=== PATIENT | female | born 1980 | race Caucasian/White ===

== ENCOUNTER 2016-03-21 15:42 | Observation (INO) | payer OTHER ==
[~2016-03-21] VITALS: Ht 160 cm; Wt 72.6 kg
--- NOTE | 2016-03-21 21:28 | DIAGNOSTIC IMAGING REPORT ---
PROCEDURE: US ABDOMEN ULTRASOUND-COMPLETE INDICATION: PAIN TECHNIQUE: Donald scale and color Doppler sonographic images of the abdomen were obtained. COMPARISON: None. FINDINGS: Status post cholecystectomy. Common duct is normal (5 mm). Pancreas is obscured by bowel gas. Liver, spleen (12.8 cm), visualized aorta, and inferior vena cava are normal. Right kidney is normal size (14.1 cm) with mild to moderate right hydronephrosis. Left kidney is of normal size (14.5 cm) with mild left hydronephrosis. Appendix cannot be visualized. IMPRESSION: 1. Status post cholecystectomy. 2. Mild to moderate right and mild left hydronephrosis which may be physiologic during , although urinary tract obstruction should still be considered. 3. Otherwise negative abdominal ultrasound.
--- NOTE | 2016-03-21 21:40 | DIAGNOSTIC IMAGING REPORT ---
PROCEDURE: US OB LIMITED INDICATION: Right flank pain. TECHNIQUE: Donald scale and color Doppler sonographic images obtained of the gravid uterus. COMPARISON: None. FINDINGS: Viable in cephalic position. Placenta is anterior and there is no evidence of previa or abruption. Normal fluid and cervix length ( 4.4 cm). Cord Doppler ratios are mildly elevated (4.3). IMPRESSION: 1. Viable in cephalic position. 2. Anterior placenta. No evidence of previa or abruption. 3. Mildly elevated cord Doppler ratios (4.3). 4. Findings discussed with Dr. Alejandre.
[2016-03-22 08:00] VITALS: BP 109/59
--- NOTE | 2016-03-22 09:36 | DIAGNOSTIC IMAGING REPORT ---
PROCEDURE: US OB LIMITED INDICATION: S/D RATIO TECHNIQUE: Donald scale and color Doppler sonographic images obtained of the gravid uterus. COMPARISON: Limited OB ultrasound 03/21/2016 FINDINGS: Single intrauterine with transverse presentation, anterior placenta without previa and heart rate 136 bpm. Normal amniotic fluid. Normal closed cervix measures 3.2 cm. Cord Doppler ratios are mildly elevated at 3.9 (previously 4.3). IMPRESSION: 1. Single live intrauterine with transverse presentation 2. Anterior placenta without previa 3. Mildly elevated cord Doppler ratios at 3.9
[2016-03-22 13:30] VITALS: BP 101/50
--- NOTE | 2016-03-22 16:20 | DIAGNOSTIC IMAGING REPORT ---
PROCEDURE: MR PELVIS W/O CONTRAST INDICATION: Right pain. Rebound. Possible appendicitis. TECHNIQUE: T1 and T2 axial and coronal images. T1 sagittal images. COMPARISON: Comparison is made to obstetrical and abdominal ultrasound is studies on 03/22/2016 and 03/21/2016. FINDINGS: Third trimester intrauterine which is now in breech position (previously cephalic). There is moderate right and mild to moderate left hydronephrosis (previously documented). Images of the right lower quadrant are grossly normal above the appendix is not definitely identified, there is no evidence of inflammatory process. There is a 5.5 cm left upper pelvic/lower abdominal ovarian cyst (previously documented). IMPRESSION: 1. Third trimester intrauterine now in breech position (previously cephalic). 2. Moderate right mild to moderate left hydronephrosis (previously documented). 3. There is a 5.5 cm left ovarian cyst (previously documented). 4. Appendix is not clearly identified, but no evidence of inflammatory process. 5. Findings discussed with Dr. Alejandre.
[2016-03-23 04:00] VITALS: BP 100/53
[2016-03-23 08:40] VITALS: BP 121/69
[2016-03-23 09:34] VITALS: BP 112/56
[2016-03-23 13:20] VITALS: BP 115/59
[2016-03-23] MEDS ORDERED: KEFLEX500 M1 PO (15:04)
--- NOTE | 2016-03-23 15:06 | Provider's Discharge Care Plan ---
Problem, Goal, Plan Problem List 1. Pyelonephritis affecting in third trimester Goals: Improve disease control Instructions: Follow up as needed
--- NOTE | 2016-03-23 15:06 | Provider's Discharge Care Plan ---
Problem, Goal, Plan Problem List 1. Pyelonephritis affecting in third trimester Goals: Improve disease control Instructions: Follow up as needed
--- NOTE | 2016-03-23 19:23 | DISCHARGE SUMMARY ---
ADMIT DATE: 03/21/2016 DISCHARGE DATE: 03/23/2016 ADMITTING DIAGNOSES: 1. Approximate 30 week gestation 2. Right lower quadrant pain 3. Fever 4. Contractions 5. Discharge DISCHARGE DIAGNOSES: 1. Approximate 30 week gestation 2. Right-sided pyelonephritis 3. Pelvic pain 4. P.o. antibiotic therapy 5. MRI evaluation of right lower quadrant BRIEF HISTORY: The patient is a well-known, somewhat complicated patient, being evaluated by [facility] as well. She has had several pregnancies, advanced maternal age. She has a history of bariatric surgery and malabsorption syndrome. HOSPITAL COURSE: She came in last Saturday complaining of abdominal pain and cramping. She was initially evaluated and thought to be dehydrated, which was performed and then apparently the elevated white count and significant evidence for pyelonephritis on the right side and/or stones by ultrasound evaluation. The patient was evaluated 4 or [address] Alejandre. The patient was placed on Rocephin 1 g a day approximately 9 p.m. After last several days she has improved steadily and desires to be discharged home. The cultures are positive and Rocephin is effective medication for treatment. Evaluation with pharmacy throughout this stay suggested discharge home with Keflex 500 mg 4 times a day, 10 days, #40, prescription given. Also during this time, blood work has shown that she has been in need of magnesium, potassium, and other elements which were provided and evaluated for normal. She also had an evaluation by the pharmacy and the nutrition branch of the hospital. Information given. DISCHARGE INSTRUCTIONS/MEDICATIONS: The patient is being discharged home with warnings and precautions. The patient was to have a followup visit in the next week. Call p.r.n.
== END 2016-03-23 16:45 | disposition home or self-care (01) ==
LOC: OBC SRH 15:42 → OB SRH 15:47 → OBC SRH 19:30 → OB SRH 19:30
PROVIDERS: ADMIT Obstetrics & Gynecology
DX: O23.03 Infections of kidney in pregnancy, third trimester (principal); O09.523 Supervision of elderly multigravida, third trimester; O99.843 Bariatric surgery status complicating pregnancy, third trimester; Z3A.30 30 weeks gestation of pregnancy
CPT/HCPCS: 29230; 29242; 29243; 29247; 29263; 81460; 90004; 90074; 90100; 90148; 90469; 91096; 92235; 92530; 92680; 92720; 92750; 95059

== ENCOUNTER 2016-04-18 14:04 | Outpatient (CLI) | payer OTHER ==
[~2016-04-18 14:04] MED LIST: KEFLEX500 M1 PO
== END 2016-04-18 14:55 | disposition home or self-care (01) ==
LOC: NST SRH 14:04 → OB SRH 14:05 → NST SRH 14:55
PROC: 4A0HXCZ Measurement of Products of Conception, Cardiac Rate, External Approach (ICD-10-PCS; principal; 2016-04-18)
DX: O99.843 Bariatric surgery status complicating pregnancy, third trimester (principal); Z3A.34 34 weeks gestation of pregnancy

== ENCOUNTER 2016-04-25 14:08 | Outpatient (CLI) | payer OTHER | END 2016-04-25 14:17 | disposition home or self-care (01) | LOC: NST SRH 14:08 → OB SRH 14:10 → NST SRH 14:17 | DX: O99.843 Bariatric surgery status complicating pregnancy, third trimester (principal); K91.2 Postsurgical malabsorption, not elsewhere classified; O09.523 Supervision of elderly multigravida, third trimester; Z3A.35 35 weeks gestation of pregnancy ==

== ENCOUNTER 2016-05-03 13:00 | Outpatient (CLI) | payer OTHER ==
[2016-05-03] MEDS ORDERED: PRENATAL1 TAB PO (16:45)
[2016-05-03] MEDS ORDERED: ALBUTEROL HFA60 DOSE IN (16:46)
[2016-05-03] MEDS ORDERED: CYANOCOBALAM1000 MCG IM (16:46)
== END 2016-05-03 14:05 | disposition home or self-care (01) ==
LOC: NST SRH 13:00 → OB SRH 13:02 → NST SRH 14:05
PROC: 4A0HXCZ Measurement of Products of Conception, Cardiac Rate, External Approach (ICD-10-PCS; principal; 2016-05-03)
DX: O99.89 Other specified diseases and conditions complicating pregnancy, childbirth and the puerperium (principal); K90.9 Intestinal malabsorption, unspecified; Z3A.36 36 weeks gestation of pregnancy

== ENCOUNTER → 2016-05-06 | Outpatient (CLI) | payer OTHER ==
[~2016-05-06] MED LIST changes: +ALBUTEROL HFA60 DOSE IN; +CYANOCOBALAM1000 MCG IM; +PRENATAL1 TAB PO; +VICODIN EQUIVAL1 TAB PO
== END ==
LOC: LAB SRH 11:39
DX: Z34.83 Encounter for supervision of other normal pregnancy, third trimester (principal)
CPT/HCPCS: 90001; 90004; 90074; 90155; 91004; 95059

== ENCOUNTER 2016-05-08 05:36 | Inpatient (IN) | payer OTHER ==
--- NOTE | 2016-05-03 19:59 | HISTORY AND PHYSICAL ---
ADMITTED: 05/08/2016 CHIEF COMPLAINT: 1. Grand mal tip with ultrasound showing lower uterine segment separation/ window in peritoneum lining with the history of bariatric surgery and malabsorption HISTORY OF PRESENT ILLNESS: [facility] consulted for this patient with 2 previous C-sections, is to perform repeat section and patient requests a bilateral tubal ligation at 37 weeks. She is now at 36 weeks 2 days and by 05/08 she will be 37 weeks. The surgery is scheduled for this time. MEDICAL/SURGICAL HISTORY: Problem list: She has history of a bladder infection. This is a grand mal tip. Previous B12 injections by primary care physician with Vitamin D supplementation and right pyelonephritis earlier in the with a short stay hospitalization and IV medication treatment. Menstrual history: Essentially normal. OB history: Normal spontaneous x3 in 1998, 2003 and 2004, section in 2006 and 2007, the current . Past surgical history: Tonsillectomy, lap band, removal of lap band, gastric bypass, cholecystectomy, endoscopy. Medical Issues: Asthma. The patient has some Child Protective Service issues and is requesting to stay as long as she can in the hospital with the baby since there will be potentially some CPS actions with regard to her potentially not keeping the baby. There are ongoing concerns from previous situation. MEDICATIONS: 1. Nothing. ALLERGIES: 1. OXYCODONE LEADS TO RASH, RESPIRATORY IRREGULARITY AND TACHYCARDIA, WHEREAS VICODIN IS NORMALLY TOLERATED. SOCIAL HISTORY: No tobacco, drinking, or drugs. FAMILY HISTORY: Mother, father, siblings alive and well. Hypertension in the mother, maternal grandmother, paternal grandfather, paternal grandmother. Diabetes, multiple, on both sides, cancer, mother of cervix, paternal grandmother and coronary artery disease. REVIEW OF SYSTEMS: Essentially alert and oriented x3. No significant problems today. Genitourinary: Purpose of surgery. Cardiovascular: No shortness of breath or chest pain. Gastrointestinal: Normal daily bowel movements. PHYSICAL EXAMINATION: VITAL SIGNS: 63 inches, 5 foot 3 inches, weight 163, blood pressure normal 120/ 76, pulse, temperature normal. HEENT: SKIN/HAIR: Normal. HEENT: Grossly intact. INTEGUMENT: Normal. BREASTS: Examination not done. LUNGS: Clear. HEART: Regular rate and rhythm. ABDOMEN: Term from previous obesity and stretch brothers. EXTREMITIES: No clubbing, cyanosis, erythema, edema of significance. PELVIC: Examination not done. RECTAL: Not done. LAB/IMAGING: Laboratories pending. IMPRESSION: 1. Lower uterine segment thinning noted on ultrasound early in by [facility]. Suggestion is delivery at 37 weeks. The patient has been having weekly ultrasounds and weekly nonstress tests. [facility] cleared the patient for delivery here at 37 weeks. PLAN: Informed consent is given to patient. Risks, benefits, complications, alternatives for repeat section and tubal ligation at 37 weeks. The possibility of blood loss, need for transfusion, infection, damage to pelvic and nonpelvic organs requiring additional surgery given to the patient. She understands, accepts the risks, range all up to including . The concept of bilateral tubal ligation is thought to be permanent, only 90% effective. Pregnancies are possible. Complications associated with that discussed. The patient understands and accepts.
[2016-05-08] VITALS (8 sets, daily range): BP systolic 110–132; BP diastolic 55–68
[~2016-05-08 05:36] MED LIST changes: -VICODIN EQUIVAL1 TAB PO
--- NOTE | 2016-05-08 10:58 | OPERATIVE REPORT ---
DATE OF SURGERY: 05/08/2016 SURGEON: Jim Bergeron MD CHARGE AIDE: Peyton Alejandre DO PREOPERATIVE DIAGNOSES: 1. A 37+ week intrauterine with nonexistent lower uterine muscle layer by earlier ultrasound. [facility] suggested delivery at 37 weeks due to possible rupture, previous section x2, multiparity, desiring voluntary sterilization. Previous history of multiple surgeries POSTOPERATIVE DIAGNOSES: 1. A 37+ week intrauterine with nonexistent lower uterine muscle layer by earlier ultrasound. [facility] suggested delivery at 37 weeks due to possible rupture, previous section x2, multiparity, desiring voluntary sterilization. Previous history of multiple surgeries PROCEDURE PERFORMED: 1. Repeat section, Pfannenstiel type 2. Bilateral tubal ligation with Filshie clips 3. Scar revision. ANESTHESIA: Spinal; Anesthesiologist: Karli MUNROE. COMPLICATIONS: None. CONDITION: Good. ESTIMATED BLOOD LOSS: Less than 300 mL FLUIDS: 300. IMPLANTS/GRAFTS: No blood, no grafts, no implants other than 2 Filshie clips. SURGICAL FINDINGS: Normal anatomy consistent with previous section x2. The lower uterine segment was less than 1 mm thick, minimal dissection after the bladder flap was developed before clear fluid was noted with entry into the uterine cavity through the amniotic chorion. SURGICAL TECHNIQUE: The patient was prepped and draped in the usual fashion. Two grams of Ancef given. The time-out was observed with a history of significant weight loss , gastric plication. The pannus had to be evaluated for proper entry. A Pfannenstiel incision approximately 12 cm in length developed 3-4 cm superior and inferiorly through the previous scar, was delivered as a scar revision. This dissection was carried down into the primary anatomic position by elevating the pannus to the fascia, which was dissected and then superiorly. There was a thin layer of rectus which was easily . The parietal peritoneum was easily entered and stretch was performed. The bladder blade was placed. Bovie was used to cauterize the bladder flap and then dissect the lower uterine segment which was less than 1 mm thick. Bandage scissors were used to carry the incision laterally and superiorly. Infant was delivered with difficulty in the transverse position as expected for 37 weeks and had some vernix but was an atraumatic delivery. Pediatricians were in attendance. There was suctioning cord x2 to the baby and then cord clamp was performed. The baby was handed to pediatrics after suctioning was performed. Apgars were good. The baby was active at this point. The uterus was massaged internally, in its normal anatomic position and Pitocin was started IV. Placenta was delivered intact. The uterus had 3 ring clamps placed on it, the first suture of 0 poly was used in a locking fashion from angle to angle using the same suture for return imbricating suture with good hemostasis. The ovaries were inspected bilaterally along with the tubes and the ampullary area 3-4 cm from the fundus of the uterus, the Filshie clips were securely placed, doubly checked for secure placement after irrigation , removal of amniotic fluid and some blood loss. A small loop was used to place the parietal peritoneum in the rectus to prevent diastasis recti, then the fascia was reapproximated with a running suture of 0-poly from angle to angle with good reapproximation of the fascia to hopefully decrease the amount of pannus formation. The first suture of 2-0 poly was then used to reapproximate the gaping area of subcutaneous tissue 5 cm deep. This was reapproximated to prevent seroma. Good hemostasis. The skin was reapproximated with tawanna. Sponge, needle, tape and instrument count was correct x2. The patient tolerated the procedure well and went to the recovery room in good condition.
[2016-05-09 00:38] VITALS: BP 107/52
[2016-05-09 05:01] VITALS: BP 114/62
[2016-05-09 09:30] VITALS: BP 127/59
[2016-05-09 16:15] VITALS: BP 103/61
[2016-05-10 00:59] VITALS: BP 119/70
[2016-05-10 04:50] VITALS: BP 105/57
[2016-05-10] MEDS ORDERED: VICODIN EQUIVAL1 TAB PO (11:38)
--- NOTE | 2016-05-10 11:40 | Provider's Discharge Care Plan ---
Problem, Goal, Plan Problem List 1. Post-operative pain Goals: Improve disease control Instructions: Follow up as needed
--- NOTE | 2016-05-10 11:40 | Provider's Discharge Care Plan ---
Problem, Goal, Plan Problem List 1. Post-operative pain Goals: Improve disease control Instructions: Follow up as needed
--- NOTE | 2016-05-10 13:14 | DISCHARGE SUMMARY ---
ADMIT DATE: 05/08/2016 DISCHARGE DATE: 05/10/2016 ADMITTING DIAGNOSIS: 1. A 37 week gestation. Thin lower uterine segment, suggested section at 37 weeks by [facility] consultation 2. Multiparity desiring voluntary sterilization DISCHARGE DIAGNOSIS: 1. A 37 week gestation. Thin lower uterine segment, suggested section at 37 weeks by [facility] consultation, delivered at 37+ weeks 2. Multiparity desiring voluntary sterilization PROCEDURE: Repeat low segment transverse uterine section, scar revision , bilateral tubal ligation, Filshie clips. HOSPITAL COURSE: The patient came in for elective section at 37+ weeks. Had a normal recovery. She had some issues with Child Protective Services and the was to be removed on the patient's discharge. Now it is postoperative day 2, the patient is ready for discharge and CPS is going to take the baby. DISCHARGE MEDICATIONS/INSTRUCTIONS: The patient was given warnings and precautions. She has a normal physical exam, normal resumption of GI and function as well as a followup appointment in a week. She is being discharged home with Vicodin 5/325, #20, 1 p.o. q.6 hours p.r.n. She states she has intolerance or AN ALLERGY TO PERCOCET, leading to nausea and vomiting. The patient has appointments as noted in 1 in 6 weeks and will follow up as needed. Cautions and warnings given.
== END 2016-05-10 14:45 | disposition home or self-care (01) | DRG 766 ==
LOC: OB SRH 05:36 → U SRH 08:30 → OB SRH 05-10 14:45
PROVIDERS: ADMIT Obstetrics & Gynecology
PROC: 10D00Z1 Extraction of Products of Conception, Low, Open Approach (ICD-10-PCS; principal; 2016-05-08 08:30)
PROC: 0UL70CZ Occlusion of Bilateral Fallopian Tubes with Extraluminal Device, Open Approach (ICD-10-PCS; principal; 2016-05-08 08:30)
DX: O34.211 Maternal care for low transverse scar from previous cesarean delivery (principal); Z37.0 Single live birth; N85.8 Other specified noninflammatory disorders of uterus; O09.43 Supervision of pregnancy with grand multiparity, third trimester; Z30.2 Encounter for sterilization; Z3A.37 37 weeks gestation of pregnancy
CPT/HCPCS: 40010; 50002; 60001; 82885; 83411; 83426; 83526; 84038; 84043; 90074; 91162; 91163

== ENCOUNTER 2016-08-21 06:24 | Day surgery (SDC) | payer OTHER ==
--- NOTE | 2016-08-10 18:55 | HISTORY AND PHYSICAL ---
ADMITTED: 08/21/2016 CHIEF COMPLAINT: Dysmenorrhea, menometrorrhagia. HISTORY OF PRESENT ILLNESS: The patient has a long history of multiple surgeries , gastric sleeve, weight issues and heavy uterine menstrual periods and wants a supracervical hysterectomy. MEDICAL/SURGICAL HISTORY: Menstrual history: Onset age 14. Interval monthly, 10 days, heavy in character, dysmenorrhea. Contraception/ history: Not significant. Deliveries are 6, 3 vaginal in 1998, 2003 and 2004, 3 sections in 2006, 2007 and 2016, the largest is 9 pounds 5 ounces. Past history of gastric bypass in 2014. Cholecystectomy in 1998, lap band 2011, lap band removed 2012, tonsillectomy in 2002, cholecystectomy in 1998, endoscopy in 2013. Medical history of lumbago, carpal tunnel, asthma, alopecia, bipolar, intertrigo, insomnia, migraine, malabsorption syndrome, vitamin D deficiency, panic disorder. MEDICATIONS: 1. Albuterol p.r.n. 2. Triamcinolone cream p.r.n. 3. B12 injections monthly. ALLERGIES: 1. OXYCODONE. SOCIAL HISTORY: FAMILY HISTORY: Mother, father, siblings alive and well. REVIEW OF SYSTEMS: The patient is alert and oriented x3. Genitourinary: Purpose for surgery. Cardiovascular: No shortness of breath or chest pain. Gastrointestinal: Normal daily bowel movements. PHYSICAL EXAMINATION: VITAL SIGNS: She is 5 feet 3 inches, 146, 108/72, blood pressure, pulse, and temperature normal. SKIN/HAIR/INTEGUMENT: Normal. HEENT: Grossly intact. NECK: Thyroid not palpated. BREASTS: Exam not done. LUNGS: Clear. HEART: Regular rate and rhythm. ABDOMEN: Benign, well-healed from previous recent section. EXTREMITIES: No clubbing, cyanosis, erythema or edema. PELVIC/RECTAL: Deferred at this time. See previous exam. LAB/IMAGING: Pending. IMPRESSION: 1. Abnormal uterine bleeding with a long history of abnormal bleeding and pain. PLAN: Supracervical hysterectomy with morcellation including bilateral salpingectomy. Informed consent given to the patient. Risks, benefits, complications, alternatives similar to list given to the patient several months ago with section. The patient understands and accepts.
[~2016-08-21] VITALS: Ht 160 cm; Wt 64.7 kg
[~2016-08-21 06:24] MED LIST changes: +VICODIN EQUIVAL1 TAB PO
[2016-08-21] MEDS ORDERED: VICODIN EQUIVAL1 TAB PO (10:23)
--- NOTE | 2016-08-21 10:25 | Provider's Discharge Care Plan ---
Problem, Goal, Plan Problem List 1. Post-operative pain Goals: Improve disease control Instructions: Follow up as needed, Follow up as directed
--- NOTE | 2016-08-21 10:25 | Provider's Discharge Care Plan ---
Problem, Goal, Plan Problem List 1. Post-operative pain Goals: Improve disease control Instructions: Follow up as needed, Follow up as directed
--- NOTE | 2016-08-21 12:54 | OPERATIVE REPORT ---
DATE OF SURGERY: 08/21/2016 SURGEON: Jim Bergeron MD SANDER WOODEN PENCILS: Danny Gage III, MD PREOPERATIVE DIAGNOSES: 1. Dysmenorrhea 2. Menorrhagia 3. Abnormal uterine bleeding 4. Pelvic pain in female POSTOPERATIVE DIAGNOSES: 1. Dysmenorrhea 2. Menorrhagia 3. Abnormal uterine bleeding 4. Pelvic pain in female PROCEDURE PERFORMED: 1. Four-puncture laparoscopic surgery, bilateral salpingectomy and morcellation of specimen ANESTHESIA: General endotracheal. Wanda, SULKY DRIVER. COMPLICATIONS: Redundant tissue from previous massive surgery loss. CONDITION: Good. ESTIMATED BLOOD LOSS: Less than 50 mL. FLUIDS: 900. No blood. DRAINS: 100. IMPLANTS/GRAFTS: None. PATHOLOGY SPECIMEN: Supracervical hysterectomy and bilateral salpingectomy by morcellation, to pathology. SURGICAL FINDINGS: Normal, minimal adhesions, considering the number of previous surgeries. SURGICAL TECHNIQUE: The patient was prepped and draped in the usual procedure. Time-out was performed. Ancef had been given, 2 grams. The patient had multiple scars from previous surgeries. There was some difficulty attempting to place the Veress needle through the redundant tissue from previous gastric plications and resultant weight loss. Dr. Gage then thought it would be in order to right upper region where there was no previous incision site, in the right upper quadrant. He made a 2 cm incision and also went through 5-6 cm of redundant subcutaneous tissue without actually perforating the fascia, to gain exposure. At this point, it was decided to just do a small cut down the midline where we started. A 2 cm incision was made under sharp dissection in the midline, 2 cm below the umbilicus, with good placement. With good exposure, the 10 mm scope was placed, and then the suture was used to reapproximate the skin for being able to achieve the pneumoperitoneum. The uterus and ovaries appeared normal. There was enlarged left ovary. We then began the Thunderbeat dissection of the salpinx from the ovary bilaterally, down to the attachment of the round ligament. Then we dissected across the transverse cervical ligaments, down to the uterosacral ligaments. At this point, we dissected the bladder across the top, and then we used the Thunderbeat to dissect and cut the supracervical region, and the specimen was freed. At this point, since there was a 2 cm incision site at the subumbilical site, we placed the morcellating instrument through that orifice instead of enlarging the left lower quadrant in the usual fashion. A 5 mm camera was placed on the right side. The coding director was performed on the left. specimen was removed in the usual fashion through the subumbilical site. Specimen was removed. One liter of saline was repeatedly irrigated in the abdomen to remove possible small piece of the uterus which may cause seeding in the future. Good hemostasis on the stump of the supracervical site incision and good hemostasis in general. Irrigation had been performed and completed. The two 5 mm sites were removed. The 11 mm site was removed. The CO2 was allowed to escape. Two of the incision sites had several tawanna placed. The other 2 sites had Band-Aids placed. Sponge, needle, tape and instrument counts were correct x2. The patient tolerated the procedure well and went to the recovery room in good condition. We did not take any pictures during surgery; there was nothing of interest during the surgery to visualize historically.
--- NOTE | 2016-08-21 12:54 | OPERATIVE REPORT ---
DATE OF SURGERY: 08/21/2016 SURGEON: Jim Bergeron MD MEMS PROCESS ENGINEER: Danny Gage III, MD PREOPERATIVE DIAGNOSES: 1. Dysmenorrhea 2. Menorrhagia 3. Abnormal uterine bleeding 4. Pelvic pain in female POSTOPERATIVE DIAGNOSES: 1. Dysmenorrhea 2. Menorrhagia 3. Abnormal uterine bleeding 4. Pelvic pain in female PROCEDURE PERFORMED: 1. Four-puncture laparoscopic surgery, bilateral salpingectomy and morcellation of specimen ANESTHESIA: General endotracheal. Wanda, RESOURCE FORESTER. COMPLICATIONS: Redundant tissue from previous massive surgery loss. CONDITION: Good. ESTIMATED BLOOD LOSS: Less than 50 mL. FLUIDS: 900. No blood. DRAINS: 100. IMPLANTS/GRAFTS: None. PATHOLOGY SPECIMEN: Supracervical hysterectomy and bilateral salpingectomy by morcellation, to pathology. SURGICAL FINDINGS: Normal, minimal adhesions, considering the number of previous surgeries. SURGICAL TECHNIQUE: The patient was prepped and draped in the usual procedure. Time-out was performed. Ancef had been given, 2 grams. The patient had multiple scars from previous surgeries. There was some difficulty attempting to place the Veress needle through the redundant tissue from previous gastric plications and resultant weight loss. Dr. Gage then thought it would be in order to right upper region where there was no previous incision site, in the right upper quadrant. He made a 2 cm incision and also went through 5-6 cm of redundant subcutaneous tissue without actually perforating the fascia, to gain exposure. At this point, it was decided to just do a small cut down the midline where we started. A 2 cm incision was made under sharp dissection in the midline, 2 cm below the umbilicus, with good placement. With good exposure, the 10 mm scope was placed, and then the suture was used to reapproximate the skin for being able to achieve the pneumoperitoneum. The uterus and ovaries appeared normal. There was enlarged left ovary. We then began the Thunderbeat dissection of the salpinx from the ovary bilaterally, down to the attachment of the round ligament. Then we dissected across the transverse cervical ligaments, down to the uterosacral ligaments. At this point, we dissected the bladder across the top, and then we used the Thunderbeat to dissect and cut the supracervical region, and the specimen was freed. At this point, since there was a 2 cm incision site at the subumbilical site, we placed the morcellating instrument through that orifice instead of enlarging the left lower quadrant in the usual fashion. A 5 mm camera was placed on the right side. The legal administrator was performed on the left. specimen was removed in the usual fashion through the subumbilical site. Specimen was removed. One liter of saline was repeatedly irrigated in the abdomen to remove possible small piece of the uterus which may cause seeding in the future. Good hemostasis on the stump of the supracervical site incision and good hemostasis in general. Irrigation had been performed and completed. The two 5 mm sites were removed. The 11 mm site was removed. The CO2 was allowed to escape. Two of the incision sites had several tawanna placed. The other 2 sites had Band-Aids placed. Sponge, needle, tape and instrument counts were correct x2. The patient tolerated the procedure well and went to the recovery room in good condition. We did not take any pictures during surgery; there was nothing of interest during the surgery to visualize historically.
[2016-08-21 15:50] VITALS: BP 118/71
== END 2016-08-21 22:10 | disposition home or self-care (01) ==
LOC: OR SRH 06:24 → SCU SRH 06:25 → OR SRH 07:30 → OB SRH 17:39 → OR SRH 22:10
PROVIDERS: Obstetrics & Gynecology
PROC: 0UT94ZZ Resection of Uterus, Percutaneous Endoscopic Approach (ICD-10-PCS; principal; 2016-08-21 07:30)
PROC: 0UT74ZZ Resection of Bilateral Fallopian Tubes, Percutaneous Endoscopic Approach (ICD-10-PCS; principal; 2016-08-21 07:30)
DX: N92.0 Excessive and frequent menstruation with regular cycle (principal); N80.0 Endometriosis of uterus; N94.6 Dysmenorrhea, unspecified; R10.2 Pelvic and perineal pain; J45.909 Unspecified asthma, uncomplicated

== ENCOUNTER 2016-08-24 04:19 | Observation (INO) | payer OTHER ==
[2016-08-24] VITALS (12 sets, daily range): BP systolic 120–160; BP diastolic 68–95
[~2016-08-24] VITALS: Ht 160 cm; Wt 68.2 kg
--- NOTE | 2016-08-24 05:38 | ED ORDER SUMMARY ---
..... Patient: JUAN CARLOS NAVA V OrderSheet [facility] VisitID: [id number] [place] [address] 36y, F Registration Date/Time: 08/24/2016 ORDER SHEET Weight: 64.4 kg (stated) Allergies: Oxycodone GENERAL ORDERS: UA-Culture if indicated Urgent (04:08/24/2016 PHutchinson DO) (Ack 4:39 OSnell) (4:49 CBradburn R.N.) Amylase Urgent (04:08/24/2016 PHutchinson DO) (Ack 4:39 OSnell) (4:55 CBradburn R.N.) Lipase Urgent (04:08/24/2016 PHutchinson DO) (Ack 4:39 OSnell) (4:55 CBradburn R.N.) Urine Drug Screen Urgent (04:08/24/2016 PHutchinson DO) (Ack 4:39 OSnell) (4:49 CBradburn R.N.) PT with INR Urgent (04:08/24/2016 PHutchinson DO) (Ack 4:39 OSnell) (4:55 CBradburn R.N.) Cardiac Panel Stat (04:08/24/2016 PHchinson DO) (Ack 4:39 OSnell) (4:55 CBradburn R.N.) BNP Urgent (04:08/24/2016 PHutchinson DO) (Ack 4:40 OSnell) (4:55 CBradburn R.N.) NPO (04:08/24/2016 PHutchinson DO) (Ack 4:39 OSnell) (4:46 CBradburn R.N.) MEDICATION ORDERS: IV FLUIDS: IV NS : initial bolus 1000 mL (1000 mL/hr), then 500 mL/hr for X2 (NOW) (04:08/24/2016 PHutchinson DO) (Ack 4:46 CBradburn R.N.) (4:56 CBradburn R.N.) Zofran IV 4 mg (NOW) (04:08/24/2016 PHutchinson DO) (Ack 4:46 CBradburn R.N.) (4:56 CBradburn R.N.) Reglan IV 10 mg (NOW) (05:40 08/24/2016 Jameel ORLANDO) (Ack 5:57 CBradburn R.N.) (6:08 CBradburn R.N.) ORDER SHEET NOTES: [Electronically signed by Glen Smith DO (05:50 08/24/2016)] [Electronically signed by Cate Farley R.N. (06:26 08/24/2016)] [Electronically locked/signed by Cate Farley R.N. (06:26 08/24/2016)]
--- NOTE | 2016-08-24 05:38 | ED ORDER SUMMARY ---
..... Patient: JUAN CARLOS NAVA V OrderSheet [facility] VisitID: [id number] [place] [address] 36y, F Registration Date/Time: 08/24/2016 ORDER SHEET Weight: 64.4 kg (stated) Allergies: Oxycodone GENERAL ORDERS: UA-Culture if indicated Urgent (04:08/24/2016 PHutchinson DO) (Ack 4:39 OSnell) (4:49 CBradburn R.N.) Amylase Urgent (04:08/24/2016 PHutchinson DO) (Ack 4:39 OSnell) (4:55 CBradburn R.N.) Lipase Urgent (04:08/24/2016 PHutchinson DO) (Ack 4:39 OSnell) (4:55 CBradburn R.N.) Urine Drug Screen Urgent (04:08/24/2016 PHutchinson DO) (Ack 4:39 OSnell) (4:49 CBradburn R.N.) PT with INR Urgent (04:08/24/2016 PHutchinson DO) (Ack 4:39 OSnell) (4:55 CBradburn R.N.) Cardiac Panel Stat (04:08/24/2016 PHchinson DO) (Ack 4:39 OSnell) (4:55 CBradburn R.N.) BNP Urgent (04:08/24/2016 PHutchinson DO) (Ack 4:40 OSnell) (4:55 CBradburn R.N.) NPO (04:08/24/2016 PHutchinson DO) (Ack 4:39 OSnell) (4:46 CBradburn R.N.) MEDICATION ORDERS: IV FLUIDS: IV NS : initial bolus 1000 mL (1000 mL/hr), then 500 mL/hr for X2 (NOW) (04:08/24/2016 PHutchinson DO) (Ack 4:46 CBradburn R.N.) (4:56 CBradburn R.N.) Zofran IV 4 mg (NOW) (04:08/24/2016 PHutchinson DO) (Ack 4:46 CBradburn R.N.) (4:56 CBradburn R.N.) Reglan IV 10 mg (NOW) (05:40 08/24/2016 Jameel ORLANDO) (Ack 5:57 CBradburn R.N.) (6:08 CBradburn R.N.) ORDER SHEET NOTES: [Electronically signed by Glen Smith DO (05:50 08/24/2016)] [Electronically signed by Cate Farley R.N. (06:26 08/24/2016)] [Electronically locked/signed by Cate Farley R.N. (06:26 08/24/2016)]
--- NOTE | 2016-08-24 05:38 | ED CLINICAL REPORT ---
Clinical Report - Physicians/Mid Levels [facility] [address] [place] [place] [address] 08/24/2016 4:18 Patient: JUAN CARLOS NAVA V Time Seen: 04:24. Arrived- By private vehicle. Historian- patient. HISTORY OF PRESENT ILLNESS Chief Complaint: VOMITING. This started last night about 8 hours ago and is still present. It was gradual in onset and has been waxing/waning. No recent travel. She has had nausea (since surgery, but no vomiting until last night). She has had moderate vomiting. The vomiting has occurred numerous times. No blood-tinged emesis or frankly bloody emesis. No diarrhea, black stools, bloody stools or known contact with a sick individual. She has had moderate abdominal pain. The pain is described as generalized. Has not recently been camping. The illness is described as moderate. Similar symptoms previously: Recent medical care: The patient was seen recently by a health care provider. ( Had hysterectomy at [facility] on - Dr Bergeron; She has been taking opiate pain meds since surgery). REVIEW OF SYSTEMS The patient has had a hysterectomy. No fever, difficulty with urination, headache, sore throat or cough. No chest pain, difficulty breathing, excessive urination, skin rash or jaundice. No fainting episodes or blurred vision. The patient has had dark urine and dizziness. Denies current . All systems otherwise negative, except as recorded above. 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 URI. Asthma. Hypokalemia. Syncope. UTI - Urinary Tract Infection. Cystitis. Chest Wall Pain. Depression. Bipolar Disorder. SURGERIES: Hysterectomy with unilat salpingectomy (3 days ago)Cholecystectomy. . Gastric bypass. Gastric Resection. Lap band. Tonsillectomy. Tympanostomy Tubes ADDITIONAL HISTORY FROM OLD RECORDS: MEDICAL/SURGICAL HISTORY: Menstrual history: Onset age 14. Interval monthly, 10 days, heavy in character, dysmenorrhea. Contraception/ history: Not significant. Deliveries are 6, 3 vaginal in 1998, 2003 and 2004, 3 sections in 2006, 2007 and 2016, the largest is 9 pounds 5 ounces. Past history of gastric bypass in 2014. Cholecystectomy in 1998, lap band 2011, lap band removed 2012, tonsillectomy in 2002, cholecystectomy in 1998, endoscopy in 2013. Medical history of lumbago, carpal tunnel, asthma, alopecia, bipolar, intertrigo, insomnia, migraine, malabsorption syndrome, vitamin D deficiency, panic disorder. SOCIAL HISTORY Never smoker. No alcohol use or drug use. Residence: [place] Is a local resident. FAMILY HISTORY Mother, father, siblings alive and well. ADDITIONAL NOTES The nursing notes have been reviewed. PHYSICAL EXAM Vital Signs: 08/24/2016 04:26 BP: 140/67. HR: 89. RR: 18. O2 saturation: 97%. Temp: 98.7 F. Pain level now: 8/10. Appearance: Alert. Oriented X3. Patient in moderate distress. Eyes: Eyes normal inspection. No pale conjunctivae or scleral icterus. ENT: Nose normal. No pharyngeal erythema or tonsillar exudate. Neck: Normal inspection. Neck supple. CVS: Normal heart rate and rhythm. Heart sounds normal. Pulses normal. Respiratory: No respiratory distress. Breath sounds normal. Abdomen: Soft. Moderate tenderness diffusely and in the upper and lower abdomen. No mass. No rebound tenderness or guarding. Back: Normal inspection. Skin: Skin warm and dry. Normal skin color. Normal skin turgor. Extremities: Extremities exhibit normal ROM. No calf tenderness. No lower extremity edema. Neuro: Oriented X 3. No motor deficit. LABS, X-RAYS, AND EKG Laboratory Tests: UA-Culture if indicated: (ANA: 08/24/2016 04:44) ( MsgRcvd 08/24/2016 05:19) Final results Test Result Flag Units (Reference) URINE COLOR YELLOW URINE APPEARANCE CLEAR URINE GLUCOSE NEGATIVE (NEGATIVE) URINE BILIRUBIN NEGATIVE (NEGATIVE) URINE KETONE 1+ (NEGATIVE) URINE SPECIFIC GRAVITY >= 1.030 (1.010-1.030) URINE PH 6.0 (5.0-8.0) URINE PROTEIN TRACE (NEGATIVE) URINE UROBILINOGEN 0.2 EU/dL (0.2-1.0) URINE NITRITE NEGATIVE (NEGATIVE) URINE BLOOD 1+ (NEGATIVE) URINE LEUK ESTERASE NEGATIVE (NEGATIVE) URINE RBC 1-3 rbc/hpf (0-1) URINE WBC 0-1 wbc/hpf (0-1) URINE EPITHELIAL CELLS 1-3 EPI/hpf (0-5) URINE BACTERIA NONE SEEN (NONE SEEN) URINE COMMENT CULT NOT INDICATED URINE CULTURES ARE SET-UP BASED ON THE FOLLOWING CRITERIA:POSITIVE NITRITEPOSITIVE LEUKOCYTE ESTERASEGREATER THAN 10 WHITE BLOOD CELLSMODERATE (2+) OR GREATER BACTERIA CBC w Diff: (ANA: 08/24/2016 04:44) ( [facility] 08/24/2016 05:06) Final results Test Result Flag Units (Reference) WHITE BLOOD COUNT 12.8 # H K/uL (4.5-11.5) RED BLOOD COUNT 5.07 M/uL (4.00-5.20) HEMOGLOBIN 13.3 gm/dL (12.0-16.0) HEMATOCRIT 41.4 % (36.0-46.0) MEAN CELL VOLUME 82 fL (80-100) MEAN CORPUSCULAR HGB 26 pg (26-34) MEAN CORPUSCULAR HGB CONC 32 g/dL (31-37) RED CELL DISTRIBUTION WIDTH 15.6 H % (11.6-14.8) PLATELET COUNT 277 K/uL (150-400) NEUTROPHIL % 84.2 H % (50-75) LYMPH % 9.3 L % (25-40) MONO % 4.8 % (3-14) EOSINOPHIL % 1.7 % (0-4) BASOPHIL % 0 % (0-2) PT with INR: (ANA: 08/24/2016 04:44) ( [facility] 08/24/2016 05:13) Final results Test Result Flag Units (Reference) INR 0.9 (0.8-1.2) Low Intensity Therapy: INR 1.5-2.0 PT range 18.5-23.1Mod.Intensity Therapy: INR 2.0-3.0 PT range 23.1-31.5High Intensity Therapy: INR 2.5-3.5 PT range 27.4-35.5High Intensity Therapy 2: INR 3.0-4.0 PT range 31.5-39.3 Urine Drug Screen: (ANA: 08/24/2016 04:44) ( [facility] 08/24/2016 05:21) Final results Test Result Flag Units (Reference) AMPHETAMINE/METHAMPHETAMINE NEGATIVE (NEGATIVE) BARBITURATE NEGATIVE (NEGATIVE) BENZODIAZEPINE NEGATIVE (NEGATIVE) CANNABINOID NEGATIVE (NEGATIVE) COCAINE NEGATIVE (NEGATIVE) ECSTASY NEGATIVE (NEGATIVE) METHADONE NEGATIVE (NEGATIVE) OPIATE POSITIVE H (NEGATIVE) The urine drug screen is a qualitative screening test fordrug overdose and abuse. All screen results should beconsidered as presumptive.Drugs screened for are as follows:BenzodiazepinesCocaineAmphetamines/MetamphetaminesTHC (Tetrahydrocannabinol)OpiatesBarbituratesEcstasyMethadonePositive results are unconfirmed. For confirmation, notifythe lab for the specimen to be sent to the reference lab.All confirmations must be performed by a differentmethodology.The ingestion of natural herbal and plant productscontaining Ephedra/Ephedra metabolites can produce in urineone or more substances capable of cross reacting withamphetamine/methamphetamine immunoassays. These testsprovide a preliminary result only. A more specificalternative chemical method must be used to obtain aconfirmed analytical result. BNP: (ANA: 08/24/2016 04:44) ( [facility] 08/24/2016 05:25) Final results Test Result Flag Units (Reference) B-TYPE NATRIURETIC PEPTIDE 10.9 pg/ml (5-100) Lipase: (ANA: 08/24/2016 04:44) ( [facility] 08/24/2016 05:19) Final results Test Result Flag Units (Reference) LIPASE 92 U/L (73-393) AMYLASE 45 U/L (25-115) CHEM 13 PANEL: (ANA: 08/24/2016 04:44) ( [facility] 08/24/2016 05:23) Final results Test Result Flag Units (Reference) GLUCOSE 142 H mg/dL (70-110) BUN 13 mg/dL (7-18) CREATININE 0.6 mg/dL (0.6-1.3) Estimated GFR >60 mL/min Estimated GFR- >60 mL/min Note: Persistent reduction over 3 months in eGFR<60 mL/min/1.73 m2 defines CKD. Patients with eGFR values>=60 mL/min/1.73 m2 may also have CKD if evidence ofpersistent proteinuria. Additional information may be foundat www.kidney.org. SODIUM 146 H mmol/L (136-145) POTASSIUM 3.8 mmol/L (3.5-5.1) CHLORIDE 106 mmol/L (98-107) CARBON DIOXIDE 29 mmol/L (21-32) CALCIUM 9.6 mg/dL (8.5-10.1) TOTAL PROTEIN 7.8 g/dL (6.4-8.2) ALBUMIN 3.7 g/dL (3.3-5.0) BILIRUBIN, TOTAL 1.5 H mg/dL (0.0-1.0) ALKALINE PHOSPHATASE 82 U/L (46-116) AST (SGOT) 17 U/L (15-37) ALT (SGPT) 27 U/L (12-78) MAGNESIUM 2.1 mg/dL (1.8-2.4) CPK 45 U/L (24-260) TROPONIN I <0.05 ng/mL (0.00-1.5) TROPONIN REFERENCE RANGE:<0.1 NEGATIVE0.1-1.5 INDETERMINANT>1.5 POSITIVE . Pulse Oximetry: 08/24/2016 04:26 O2 saturation: 97%. (FIO2 - room air). Interpretation: normal. PROGRESS AND PROCEDURES Course of Care: Normal Saline 1 liter IVPB given. Zofran 4 mg IVP given. 05:27 08/24/16. Patient is stable. Physical exam findings are improved. Symptoms better. :08/24/16. Still some nausea. Dr Bergeron will see pt in house. I will continue IV fluids and antiemetics. She will have a repeat exam and consideration for additional imaging if symptoms persist. Discussed case with on-call health care provider, (Rubio). Reviewed test results. Agreed upon treatment plan. Health care provider will see patient in hospital. Patient/family counseled. Old ED and inpatient records reviewed. Transition orders written. Disposition: Observation in Acute Care. Condition: stable and guarded and improved. CLINICAL IMPRESSION Intractable vomiting with nausea, dehydration and volume depletion. Generalized abdominal pain of undetermined cause. (3 days post hysterectomy). Moderate dehydration. Abnormal liver function test: total bilirubin. Mild leukocytosis. No lymphocytosis. (Electronically signed by Glen Smith DO 08/24/2016 5:50)
--- NOTE | 2016-08-24 05:38 | ED CLINICAL REPORT ---
Clinical Report - Physicians/Mid Levels [facility] [address] [place] [address] 08/24/2016 4:18 Patient: JUAN CARLOS NAVA V Time Seen: 04:24. Arrived- By private vehicle. Historian- patient. HISTORY OF PRESENT ILLNESS Chief Complaint: VOMITING. This started last night about 8 hours ago and is still present. It was gradual in onset and has been waxing/waning. No recent travel. She has had nausea (since surgery, but no vomiting until last night). She has had moderate vomiting. The vomiting has occurred numerous times. No blood-tinged emesis or frankly bloody emesis. No diarrhea, black stools, bloody stools or known contact with a sick individual. She has had moderate abdominal pain. The pain is described as generalized. Has not recently been camping. The illness is described as moderate. Similar symptoms previously: Recent medical care: The patient was seen recently by a health care provider. ( Had hysterectomy at [facility] on - Dr Bergeron; She has been taking opiate pain meds since surgery). REVIEW OF SYSTEMS The patient has had a hysterectomy. No fever, difficulty with urination, headache, sore throat or cough. No chest pain, difficulty breathing, excessive urination, skin rash or jaundice. No fainting episodes or blurred vision. The patient has had dark urine and dizziness. Denies current . All systems otherwise negative, except as recorded above. 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 URI. Asthma. Hypokalemia. Syncope. UTI - Urinary Tract Infection. Cystitis. Chest Wall Pain. Depression. Bipolar Disorder. SURGERIES: Hysterectomy with unilat salpingectomy (3 days ago)Cholecystectomy. . Gastric bypass. Gastric Resection. Lap band. Tonsillectomy. Tympanostomy Tubes ADDITIONAL HISTORY FROM OLD RECORDS: MEDICAL/SURGICAL HISTORY: Menstrual history: Onset age 14. Interval monthly, 10 days, heavy in character, dysmenorrhea. Contraception/ history: Not significant. Deliveries are 6, 3 vaginal in 1998, 2003 and 2004, 3 sections in 2006, 2007 and 2016, the largest is 9 pounds 5 ounces. Past history of gastric bypass in 2014. Cholecystectomy in 1998, lap band 2011, lap band removed 2012, tonsillectomy in 2002, cholecystectomy in 1998, endoscopy in 2013. Medical history of lumbago, carpal tunnel, asthma, alopecia, bipolar, intertrigo, insomnia, migraine, malabsorption syndrome, vitamin D deficiency, panic disorder. SOCIAL HISTORY Never smoker. No alcohol use or drug use. Residence: [place] Is a local resident. FAMILY HISTORY Mother, father, siblings alive and well. ADDITIONAL NOTES The nursing notes have been reviewed. PHYSICAL EXAM Vital Signs: 08/24/2016 04:26 BP: 140/67. HR: 89. RR: 18. O2 saturation: 97%. Temp: 98.7 F. Pain level now: 8/10. Appearance: Alert. Oriented X3. Patient in moderate distress. Eyes: Eyes normal inspection. No pale conjunctivae or scleral icterus. ENT: Nose normal. No pharyngeal erythema or tonsillar exudate. Neck: Normal inspection. Neck supple. CVS: Normal heart rate and rhythm. Heart sounds normal. Pulses normal. Respiratory: No respiratory distress. Breath sounds normal. Abdomen: Soft. Moderate tenderness diffusely and in the upper and lower abdomen. No mass. No rebound tenderness or guarding. Back: Normal inspection. Skin: Skin warm and dry. Normal skin color. Normal skin turgor. Extremities: Extremities exhibit normal ROM. No calf tenderness. No lower extremity edema. Neuro: Oriented X 3. No motor deficit. LABS, X-RAYS, AND EKG Laboratory Tests: UA-Culture if indicated: (ANA: 08/24/2016 04:44) ( MsgRcvd 08/24/2016 05:19) Final results Test Result Flag Units (Reference) URINE COLOR YELLOW URINE APPEARANCE CLEAR URINE GLUCOSE NEGATIVE (NEGATIVE) URINE BILIRUBIN NEGATIVE (NEGATIVE) URINE KETONE 1+ (NEGATIVE) URINE SPECIFIC GRAVITY >= 1.030 (1.010-1.030) URINE PH 6.0 (5.0-8.0) URINE PROTEIN TRACE (NEGATIVE) URINE UROBILINOGEN 0.2 EU/dL (0.2-1.0) URINE NITRITE NEGATIVE (NEGATIVE) URINE BLOOD 1+ (NEGATIVE) URINE LEUK ESTERASE NEGATIVE (NEGATIVE) URINE RBC 1-3 rbc/hpf (0-1) URINE WBC 0-1 wbc/hpf (0-1) URINE EPITHELIAL CELLS 1-3 EPI/hpf (0-5) URINE BACTERIA NONE SEEN (NONE SEEN) URINE COMMENT CULT NOT INDICATED URINE CULTURES ARE SET-UP BASED ON THE FOLLOWING CRITERIA:POSITIVE NITRITEPOSITIVE LEUKOCYTE ESTERASEGREATER THAN 10 WHITE BLOOD CELLSMODERATE (2+) OR GREATER BACTERIA CBC w Diff: (ANA: 08/24/2016 04:44) ( [facility] 08/24/2016 05:06) Final results Test Result Flag Units (Reference) WHITE BLOOD COUNT 12.8 # H K/uL (4.5-11.5) RED BLOOD COUNT 5.07 M/uL (4.00-5.20) HEMOGLOBIN 13.3 gm/dL (12.0-16.0) HEMATOCRIT 41.4 % (36.0-46.0) MEAN CELL VOLUME 82 fL (80-100) MEAN CORPUSCULAR HGB 26 pg (26-34) MEAN CORPUSCULAR HGB CONC 32 g/dL (31-37) RED CELL DISTRIBUTION WIDTH 15.6 H % (11.6-14.8) PLATELET COUNT 277 K/uL (150-400) NEUTROPHIL % 84.2 H % (50-75) LYMPH % 9.3 L % (25-40) MONO % 4.8 % (3-14) EOSINOPHIL % 1.7 % (0-4) BASOPHIL % 0 % (0-2) PT with INR: (ANA: 08/24/2016 04:44) ( [facility] 08/24/2016 05:13) Final results Test Result Flag Units (Reference) INR 0.9 (0.8-1.2) Low Intensity Therapy: INR 1.5-2.0 PT range 18.5-23.1Mod.Intensity Therapy: INR 2.0-3.0 PT range 23.1-31.5High Intensity Therapy: INR 2.5-3.5 PT range 27.4-35.5High Intensity Therapy 2: INR 3.0-4.0 PT range 31.5-39.3 Urine Drug Screen: (ANA: 08/24/2016 04:44) ( [facility] 08/24/2016 05:21) Final results Test Result Flag Units (Reference) AMPHETAMINE/METHAMPHETAMINE NEGATIVE (NEGATIVE) BARBITURATE NEGATIVE (NEGATIVE) BENZODIAZEPINE NEGATIVE (NEGATIVE) CANNABINOID NEGATIVE (NEGATIVE) COCAINE NEGATIVE (NEGATIVE) ECSTASY NEGATIVE (NEGATIVE) METHADONE NEGATIVE (NEGATIVE) OPIATE POSITIVE H (NEGATIVE) The urine drug screen is a qualitative screening test fordrug overdose and abuse. All screen results should beconsidered as presumptive.Drugs screened for are as follows:BenzodiazepinesCocaineAmphetamines/MetamphetaminesTHC (Tetrahydrocannabinol)OpiatesBarbituratesEcstasyMethadonePositive results are unconfirmed. For confirmation, notifythe lab for the specimen to be sent to the reference lab.All confirmations must be performed by a differentmethodology.The ingestion of natural herbal and plant productscontaining Ephedra/Ephedra metabolites can produce in urineone or more substances capable of cross reacting withamphetamine/methamphetamine immunoassays. These testsprovide a preliminary result only. A more specificalternative chemical method must be used to obtain aconfirmed analytical result. BNP: (ANA: 08/24/2016 04:44) ( [facility] 08/24/2016 05:25) Final results Test Result Flag Units (Reference) B-TYPE NATRIURETIC PEPTIDE 10.9 pg/ml (5-100) Lipase: (ANA: 08/24/2016 04:44) ( [facility] 08/24/2016 05:19) Final results Test Result Flag Units (Reference) LIPASE 92 U/L (73-393) AMYLASE 45 U/L (25-115) CHEM 13 PANEL: (ANA: 08/24/2016 04:44) ( [facility] 08/24/2016 05:23) Final results Test Result Flag Units (Reference) GLUCOSE 142 H mg/dL (70-110) BUN 13 mg/dL (7-18) CREATININE 0.6 mg/dL (0.6-1.3) Estimated GFR >60 mL/min Estimated GFR- >60 mL/min Note: Persistent reduction over 3 months in eGFR<60 mL/min/1.73 m2 defines CKD. Patients with eGFR values>=60 mL/min/1.73 m2 may also have CKD if evidence ofpersistent proteinuria. Additional information may be foundat www.kidney.org. SODIUM 146 H mmol/L (136-145) POTASSIUM 3.8 mmol/L (3.5-5.1) CHLORIDE 106 mmol/L (98-107) CARBON DIOXIDE 29 mmol/L (21-32) CALCIUM 9.6 mg/dL (8.5-10.1) TOTAL PROTEIN 7.8 g/dL (6.4-8.2) ALBUMIN 3.7 g/dL (3.3-5.0) BILIRUBIN, TOTAL 1.5 H mg/dL (0.0-1.0) ALKALINE PHOSPHATASE 82 U/L (46-116) AST (SGOT) 17 U/L (15-37) ALT (SGPT) 27 U/L (12-78) MAGNESIUM 2.1 mg/dL (1.8-2.4) CPK 45 U/L (24-260) TROPONIN I <0.05 ng/mL (0.00-1.5) TROPONIN REFERENCE RANGE:<0.1 NEGATIVE0.1-1.5 INDETERMINANT>1.5 POSITIVE . Pulse Oximetry: 08/24/2016 04:26 O2 saturation: 97%. (FIO2 - room air). Interpretation: normal. PROGRESS AND PROCEDURES Course of Care: Normal Saline 1 liter IVPB given. Zofran 4 mg IVP given. 05:27 08/24/16. Patient is stable. Physical exam findings are improved. Symptoms better. :08/24/16. Still some nausea. Dr Bergeron will see pt in house. I will continue IV fluids and antiemetics. She will have a repeat exam and consideration for additional imaging if symptoms persist. Discussed case with on-call health care provider, (Rubio). Reviewed test results. Agreed upon treatment plan. Health care provider will see patient in hospital. Patient/family counseled. Old ED and inpatient records reviewed. Transition orders written. Disposition: Observation in Acute Care. Condition: stable and guarded and improved. CLINICAL IMPRESSION Intractable vomiting with nausea, dehydration and volume depletion. Generalized abdominal pain of undetermined cause. (3 days post hysterectomy). Moderate dehydration. Abnormal liver function test: total bilirubin. Mild leukocytosis. No lymphocytosis. (Electronically signed by Glen Smith DO 08/24/2016 5:50)
--- NOTE | 2016-08-24 05:38 | ED NURSING NOTES ---
Clinical Report - Nurses [facility] [address] [place] [address] 08/24/2016 4:18 Patient: JUAN CARLOS NAVA V TRIAGE Triage time 04:26. Acuity: LEVEL 3. Chief Complaint: ABDOMINAL PAIN, NAUSEA and VOMITING. --04:31 Cate Farley R.N. 04:26 08/24/16. BP: 140/67 taken on the left arm, while lying. HR: 89 (regular and normal rate). RR: 18 (regular and unlabored). O2 saturation: 97% on room air. Temp: 98.7 F (oral). Pain level now: 10/18. --04:31 Cate Farley R.N. Weight: 64.4 kg stated. Height/Length: 63 inches Per Patient. BMI: 25.2. --04:27 Cate Farley R.N. Medications None. --04:29 Cate Farley R.N. Allergies Oxycodone. Definite Severe(SOB) --04:29 Cate Farley R.N. History Arrived by private vehicle. Historian: patient. Accompanied by family. Primary physician (dorcas). Onset was abrupt. Symptoms still present (at about 2000 PM). ( pt had hysterectomy on Saturday, c/o N/V starting around 8pm tonight without stopping). She has had nausea and vomiting. Last oral intake by patient was last night (at about 5 PM). Treatment [employer]: None. PAST MEDICAL HX: Immunizations: up-to-date. SOCIAL HX: Smoker- current status unknown. Alcohol use. (about 1 years ago). No drug use. No known contact with a sick individual. ABUSE ASSESSMENT: No report of abuse. SELF HARM ASSESSMENT: A self harm assessment was performed. The patient answered "no" to the question "Have you recently felt down, depressed, or hopeless?", "Have you noticed less interest or pleasure in doing things?", "Do you have thoughts of harming or killing yourself?", "Are you here because you tried to hurt yourself?", "Have you ever tried to hurt yourself before today?", "Have you recently had thoughts about harming or killing others?" and "Do you have any dangerous items in your possession?". FALL RISK ASSESSMENT: Fall risk assessment completed. No fall risk identified. NUTRITIONAL RISK ASSESSMENT: The nutritional risk assessment revealed no deficiencies. FUNCTIONAL ASSESSMENT: Functional assessment: no impairments noted. LEARNING NEEDS ASSESSMENT: The learning needs assessment revealed no barriers. SKIN INTEGRITY ASSESSMENT: Skin integrity risk assessment completed. No skin integrity risk identified. --04:31 Cate Farlye R.N. SOCIAL HX: Former smoker, end date 1998. --04:36 Cate Farley R.N. PROBLEMS: Sinusitis. Bronchitis. Dyspnea. Ovarian Cyst. Constipation. URI. Asthma. Hypokalemia. Threatened . Syncope. UTI - Urinary Tract Infection. Back Pain. Abdominal Pain. Cystitis. Chest Wall Pain. LNMP - Last Normal Menstrual Period. Depression. Bipolar Disorder. --04:30 Cate Farley R.N. ADDITIONAL SURGERIES: Bariatric Surgery. Cholecystectomy. . Gastric bypass. Gastric Resection. Hysterectomy. Lap band. Tonsillectomy. Tubes in ears. Tympanostomy Tubes. --04:30 Cate Farley R.N. Interventions ID band on patient. --04:31 Cate Farley R.N. PHYSICAL ASSESSMENT To room via wheelchair. GENERAL / NEURO / PSYCH: Alert. Oriented X 4. Appears in pain. HEENT: Mucous membranes are pink. RESPIRATORY: Respirations not labored. Breath sounds within normal limits. CVS: Normal sinus rhythm noted. Capillary refill less than 2 seconds. GI / : The patient has had constant nausea. Emesis noted. Has vomited numerous times. Multiple surgical scars present in the right upper quadrant, left upper quadrant, right lower quadrant, lower abdomen and left lower quadrant. Compatible with prior cholecystectomy, laparoscopic cholecystectomy, and hysterectomy. Bowel sounds within normal limits. SKIN: Skin is warm and dry. --04:35 Cate Farley R.N. NURSING PROGRESS NOTES Patient gowned. Call light placed in reach. Side rails up x 1. Bed placed in lowest position. Brakes of bed on. Patient ready for evaluation- chart flagged. --04:35 Cate Farley R.N. Patient ID band checked for patient name and birthdate: patient confirmed. Instructions provided to collect clean catch urine and patient verbalized understanding. Clean catch urine collected with return of neela-colored clear urine; sample sent to lab for urinalysis and drug screen. Specimen labeled in the presence of the patient. --04:50 Cate Farley R.N. 04:50 08/24/2016 Site #1 started via IV in the right antecubital space with an 20g angiocath, with aseptic technique and good blood return; one attempt. Blood drawn: rainbow set. Labeled in the presence of the patient and sent to the lab. Saline lock flushed with 10 mL saline. --04:56 Cate Farley R.N. 04:50 08/24/2016 Started bag #1 1000 mL IV Fluids IV NS (Saline); bolus of 1000 mL wide open then over 1 hour(s) via site #1. Allergies verified and confirmed 5 rights. IV patency established. IV site checked: no pain, redness, or swelling. IV flushed thoroughly pre- and post-medication administration. --04:56 Cate Farley R.N. 04:52 08/24/2016 Zofran (Ondansetron HCl) IVP 4 mg given over 2 minute(s) via site #1. Allergies verified and confirmed 5 rights. IV patency established. IV site checked: no pain, redness, or swelling. IV flushed thoroughly pre- and post-medication administration. IVP given by RN. --04:56 Cate Farley R.N. 05:45 08/24/16. BP: 142/78 taken while lying. HR: 78 (regular and normal rate). RR: 18 (regular and unlabored). O2 saturation: 97% on room air. Temp: deferred. Pain level now: 06/18. --05:58 Cate Farley R.N. The patient reports no complaints and she is calm and resting quietly. Overall patient status is the same- she states feels the same. ( pt resting no vomiting at this time). GI / : Abdomen soft. Bowel sounds within normal limits. SKIN: Skin is warm and dry. --05:58 Cate Farley R.N. 06:05 08/24/2016 Reglan (Metoclopramide HCl) IVP 10 mg given over 2 minute(s) via site #1. Allergies verified and confirmed 5 rights. IV patency established. IV site checked: no pain, redness, or swelling. IV flushed thoroughly pre- and post-medication administration. IVP given by RN. --06:08 Cate Farley R.N. DISPOSITION / DISCHARGE 06:18 08/24/2016 Site #[address] upon admission. Good blood return present. Converted to saline lock and flushed with 10 mL saline; flushes easily. --06:25 Cate Farley R.N. 06:18 08/24/2016 IV Fluids IV NS Discontinued: completed upon admission. Total amount infused: 1000 mL. IV patency established. IV site checked: no pain, redness, or swelling. IV flushed thoroughly. --06:25 Cate Farley R.N. Departure time: 617. Admitted to Acute Care (201). Transported via wheelchair by nurse with IV. Report was given to a nurse via a phone call. Report included patient's care, treatment, medications, reviewed medication reconcilliation, and condition (including any recent changes or anticipated changes). All questions were answered. Report was acknowledged and care was transferred. (Stephon RN @[id number]). Patient's personal items; items were placed in belongings bag, given to the patient and transported with the patient. --06:25 Cate Farley R.N. 06:15 08/24/16. BP: 146/75. HR: 75 (regular and normal rate). RR: 18 (regular and unlabored). O2 saturation: 98% on room air. Temp: deferred. Pain level now: 10/18. --06:25 Cate Farley R.N. Locked/Released at 08/24/2016 6:26 by Cate Farley R.N.
--- NOTE | 2016-08-24 06:26 | ED MAR SUMMARY ---
..... Medication Administration Record [facility] [address] [place] [address] Patient: JUAN CARLOS NAVA V Visit ID: [id number] 36y, F Weight: 64.4 kg Height/Length: 63 in BMI: 25.2 ALLERGIES: Oxycodone Start 04:50 08/24/2016 Cate Farley R.N., Stop 06:18 08/24/2016 Cate Farley R.N. Medication Administered: IV NS (SALINE), Dose: IV Fluids over 1 hour(s), Bolus: 1000 mL wide open, Dispensed: 1000 mL bag, Site: #1 right AC. Medication Ordered: IV NS : initial bolus 1000 mL (1000 mL/hr), then 500 mL/hr for X2 (NOW). Given 04:52 08/24/2016 Cate Farley R.N. Medication Administered: ZOFRAN [IVP] (ONDANSETRON HCL), Dose: 4 mg IVP over 2 minute(s), Site: #1 right AC. Medication Ordered: Zofran IV 4 mg (NOW). Given 06:05 08/24/2016 Cate Farley R.N. Medication Administered: REGLAN [IVP] (METOCLOPRAMIDE HCL), Dose: 10 mg IVP over 2 minute(s), Site: #1 right AC. Medication Ordered: Reglan IV 10 mg (NOW).
--- NOTE | 2016-08-24 06:26 | ED DISCHARGE INSTRUCTIONS ---
Patient: JUAN CARLOS NAVA V General Instructions [facility] VisitID: [id number] [address] [place] [address] 36y, F Registration Date/Time: 08/24/2016 Intractable vomiting with nausea, dehydration and volume depletion. Generalized abdominal pain of undetermined cause. (3 days post hysterectomy). Moderate dehydration. Abnormal liver function test: total bilirubin. Mild leukocytosis. No lymphocytosis. (Electronically signed by Glen Smith DO 08/24/2016 5:50)
--- NOTE | 2016-08-24 06:26 | ED DISCHARGE INSTRUCTIONS ---
Patient: JUAN CARLOS NAVA V General Instructions [facility] VisitID: [id number] [address] [place] [address] 36y, F Registration Date/Time: 08/24/2016 Intractable vomiting with nausea, dehydration and volume depletion. Generalized abdominal pain of undetermined cause. (3 days post hysterectomy). Moderate dehydration. Abnormal liver function test: total bilirubin. Mild leukocytosis. No lymphocytosis. (Electronically signed by Glen Smith DO 08/24/2016 5:50)
--- NOTE | 2016-08-24 06:26 | ED MED RECONCILIATION SUMMARY ---
Patient: JUAN CARLOS NAVA V Medication Reconciliation Report [facility] VisitID: [id number] [address] [place] [address] 36y, F Registration Date/Time: 08/24/2016 Weight: 64.4 kg Height/Length: 63 in. BMI: 25.2 ALLERGIES: Oxycodone The patient's Home Medications are listed below: NONE. The source(s) of the original Home Medication information: Not obtained. The following Medications were given to the patient in the Emergency Department: IV NS IV Fluids bolus 1000 mL wide open, administered: 08/24/2016 4:50:00 AM Zofran [IVP] IVP 4 mg, administered: 08/24/2016 4:52:00 AM Reglan [IVP] IVP 10 mg, administered: 08/24/2016 6:05:00 AM The following Medications were prescribed to the patient: None.
--- NOTE | 2016-08-24 06:26 | ED MED RECONCILIATION SUMMARY ---
Patient: JUAN CARLOS NAVA V Medication Reconciliation Report [facility] VisitID: [id number] [address] [place] [address] 36y, F Registration Date/Time: 08/24/2016 Weight: 64.4 kg Height/Length: 63 in. BMI: 25.2 ALLERGIES: Oxycodone The patient's Home Medications are listed below: NONE. The source(s) of the original Home Medication information: Not obtained. The following Medications were given to the patient in the Emergency Department: IV NS IV Fluids bolus 1000 mL wide open, administered: 08/24/2016 4:50:00 AM Zofran [IVP] IVP 4 mg, administered: 08/24/2016 4:52:00 AM Reglan [IVP] IVP 10 mg, administered: 08/24/2016 6:05:00 AM The following Medications were prescribed to the patient: None.
--- NOTE | 2016-08-24 06:26 | ED MAR SUMMARY ---
..... Medication Administration Record [facility] [address] [place] [address] Patient: JUAN CARLOS NAVA V Visit ID: [id number] 36y, F Weight: 64.4 kg Height/Length: 63 in BMI: 25.2 ALLERGIES: Oxycodone Start 04:50 08/24/2016 Cate Farley R.N., Stop 06:18 08/24/2016 Cate Farley R.N. Medication Administered: IV NS (SALINE), Dose: IV Fluids over 1 hour(s), Bolus: 1000 mL wide open, Dispensed: 1000 mL bag, Site: #1 right AC. Medication Ordered: IV NS : initial bolus 1000 mL (1000 mL/hr), then 500 mL/hr for X2 (NOW). Given 04:52 08/24/2016 Cate Farley R.N. Medication Administered: ZOFRAN [IVP] (ONDANSETRON HCL), Dose: 4 mg IVP over 2 minute(s), Site: #1 right AC. Medication Ordered: Zofran IV 4 mg (NOW). Given 06:05 08/24/2016 Cate Farley R.N. Medication Administered: REGLAN [IVP] (METOCLOPRAMIDE HCL), Dose: 10 mg IVP over 2 minute(s), Site: #1 right AC. Medication Ordered: Reglan IV 10 mg (NOW).
--- NOTE | 2016-08-24 09:39 | DIAGNOSTIC IMAGING REPORT ---
PROCEDURE: CT ABDOMEN/PELVIS W/O CONTRAST INDICATION: Status post hysterectomy. Possible hernia. TECHNIQUE: Noncontrast axial images with sagittal and coronal reformations. Intravenous contrast was not utilized (as requested). COMPARISON: Compared MRI pelvis on 03/22/2016, and abdominal ultrasound (03/21/2016), and CT abdomen pelvis (12/12/2011. FINDINGS: ABDOMEN: There are postoperative changes of the abdomen with abdominal wall edema, subcutaneous and retroperitoneal emphysema, and a small amount of free air. Trace ascites. There is moderate to marked fluid distention of the small bowel with a 1.5 cm periumbilical hernia (caudal to umbilicus) containing incarcerated and edematous small bowel. Cholecystectomy. Prior removal of laparoscopic gastric band with findings consistent with gastric bypass surgery (surgical mesh /clips). Liver, spleen, pancreas, kidneys, and aorta are normal. PELVIS: Status post hysterectomy with postoperative changes of the pelvis with retroperitoneal emphysema, edema and mild subcutaneous emphysema of the abdominal wall. Left ovary is enlarged (6.2 cm) secondary to a 5 cm simple cyst. Right ovary is not identified. IMPRESSION: 1. Postoperative changes consistent with hysterectomy with abdominal wall edema, subcutaneous and retroperitoneal emphysema. 2. There is a 1.5 cm infraumbilical hernia containing incarcerated edematous small bowel, associated with moderate to high-grade small bowel obstruction. 3. Postoperative changes of the right upper lateral abdominal wall. 4. Status post cholecystectomy. 5. Findings suggest gastric bypass surgery. 6. There is a 5 cm left ovarian cyst. 7. Findings discussed with Dr. Jim Bergeron. All CT scans at this facility use dose modulation, iterative reconstruction, and/or weight-based dosing when appropriate to reduce radiation dose to as low as reasonably achievable.
--- NOTE | 2016-08-24 17:59 | CONSULTATION REPORT ---
DATE OF CONSULTATION: 08/24/2016 HISTORY OF PRESENT ILLNESS: The patient is a 36-year-old woman who underwent a hysterectomy on 08/21/[address] Bergeron. At that time, she was having problems with dysmenorrhea and menometrorrhagia. She has also had multiple abdominal surgeries. MEDICAL/SURGICAL HISTORY: Past surgeries: Include 3 C-sections in 2006, 2007 and 2016 with the largest baby 9 pounds 5 ounces. She had a gastric bypass in 2014, a previous lap band in 2011. She had a cholecystectomy in 1998. She had lap band removal in 2012. The surgery was performed by Dr. Bergeron and Dr. Gage. At that time, she had a right upper quadrant laparoscopic first access site with open exposure followed by takedown of adhesions. The hysterectomy was carried out and the morcellation instrument was placed through a left lower quadrant trocar site. A 2 cm incision was made below the umbilicus for placement of a trocar under direct vision and the 10 mm scope was placed through this site. The patient reports that yesterday she developed increasing pain, nausea and vomiting and she just recently returned to the hospital after being discharged for only short period of time. Past medical history: Additionally includes low back pain, carpal tunnel, asthma , alopecia, bipolar disease, intertrigo, insomnia, migraine, malabsorption syndrome, vitamin D deficiency, and panic disorder. Additional surgeries: Other than the abdominal surgeries include tonsillectomy and GI endoscopy in 2013. MEDICATIONS: 1. Albuterol as needed. 2. Triamcinolone cream as needed. 3. B12 injections monthly. ALLERGIES: 1. OXYCODONE. SOCIAL HISTORY: The patient does not smoke or take alcohol. FAMILY HISTORY: Her parents and her siblings are alive and well. REVIEW OF SYSTEMS: A multipoint review of systems was obtained by Dr. Bergeron on and demonstrated at that time no additional problems. PHYSICAL EXAMINATION: GENERAL: The patient is alert and cooperative. Her mental status is normal. She is oriented to time, place. HEENT: Her ears and nose are without gross external lesions. Eyes are equal. She is anicteric. NECK: Without palpable masses or thyromegaly. There are no bruits in the neck. CHEST: Clear to auscultation. HEART: Regular, without murmur or gallop. ABDOMEN: Reveals discomfort around the umbilicus. There is a dressing in place at the moment, with some localized tenderness just underneath this dressing. The abdomen is otherwise mildly distended. Bowel sounds are absent. The wound dressings look like they are in place without any signs of erythema or active infection. LAB/IMAGING: Lab tests: White count today is 12.8, hemoglobin and hematocrit 13 and 41. Coagulation studies: INR is 0.9. Chemistries: Sodium 146. Other electrolytes are all normal. Bilirubin is minimally elevated at 1.5. The CT scan demonstrated postoperative changes with a 1.5 cm infraumbilical hernia containing an incarcerated edematous loop of bowel with moderate to high-grade obstruction. IMPRESSION: 1. Incarcerated umbilical hernia causing bowel obstruction at the site of an incision. PLAN: I have recommended direct exploration of incision, reduction of the hernia and repair. I explained to the patient that what the plan is. I made her aware that risks include infection, bleeding, scars, pain, damage to local structures. I also explained to her that this bowel could prove to be compromised or necrotic, which would require bowel resection and more extensive operation. In that event, there would be high-risk of infection, as well as a high-risk of fistulization and other problems down the road. She appeared to understand these and other risks and would like to proceed as described.
--- NOTE | 2016-08-24 18:05 | OPERATIVE REPORT ---
DATE OF SURGERY: 08/24/2016 SURGEON: Glen Shi MD PREOPERATIVE DIAGNOSIS: 1. Incarcerated ventral hernia POSTOPERATIVE DIAGNOSES: 1. Incarcerated ventral hernia 2. Strangulated omentum PROCEDURE PERFORMED: 1. Exploratory laparotomy with resection of omentum and repair of ventral hernia ANESTHESIA: General. COMPLICATIONS: No intraoperative complications were encountered. INDICATIONS: The patient is a 36-year-old woman who 2 days previously underwent a laparoscopic-assisted hysterectomy. The patient returned with vomiting, abdominal pain and the CT was found to have a large edematous loop of bowel in the subcutaneous tissues near the umbilicus. SURGICAL TECHNIQUE: The patient was taken to the operating room, where a general anesthetic was administered and patient prepped and draped in the usual sterile fashion. The tawanna at the midline were removed and underlying this was a black piece of omentum, as well as a big loop of bowel. The bowel itself was edematous, but was pink, perfused and not infarcted. There was a very tight opening in the fascia and rather deep subcutaneous space. The incision was enlarged a small bit until a finger could be inserted into the peritoneal cavity and the fascia was opened distally with electrocautery to allow the bowel to be reduced without injury. There was quite a lot of peritoneal fluid, which was suctioned away. The small bowel was reduced. The protruding tongue of omentum was black. It was pulled up and resected using electrocautery, removing the black area back down to vascularized omentum. Hemostasis was ascertained and the stump of omentum was returned to the abdominal cavity. The fascia itself looked pretty solid and healthy. The fascial defect was repaired using running 0 Maxon suture, starting sutures from both ends ensuring good large bites of fascia in a continuous fashion. It was decided not to place any sort of reinforcing patch as the fascia looked reasonably healthy. There was a large subcutaneous rather edematous pocket left behind. A 7 mm flat silicone drain was placed in this pocket and brought out through a separate stab wound where it was secured with a 3-0 nylon suture. The skin was closed with running subcuticular 4-0 Vicryl suture and Steri-Strips. The patient left in good condition.
[2016-08-25 02:11] VITALS: BP 106/65
[2016-08-25 07:14] VITALS: BP 101/57
[2016-08-25 10:45] VITALS: BP 113/48
--- NOTE | 2016-08-25 11:27 | Progress Note ---
Subjective General Pt. feels a lot better today. She has tolerated oral liquids, no n and v. Physical Exam Vital Signs / I&Os Vital Signs Date Time Temp Pulse Resp B/P Pulse O2 O2 Flow FiO2 Ox Delivery Rate 08/25 1045 98.1 69 18 113/48 98 Room Air 0.0 08/25 0714 98.2 63 16 101/57 98 Room Air 0.0 08/25 0211 98.2 66 16 106/65 98 Room Air 08/24 2242 98.4 68 16 120/68 96 Room Air 08/24 2020 Room Air 08/24 1830 98.1 80 16 126/87 99 Room Air 08/24 1800 98.2 73 14 160/74 96 Room Air 08/24 1745 98.1 73 14 155/95 98 Room Air 08/24 1731 90 14 137/84 98 Room Air 08/24 1716 98.2 66 16 147/92 97 Room Air 08/24 1702 98.2 66 16 139/78 96 Room Air 08/24 1700 67 12 96 08/24 1650 98.6 73 16 145/94 98 Room Air 08/24 1625 97.3 69 12 137/79 98 08/24 1620 97.3 68 12 130/79 98 08/24 1615 57 14 132/84 98 08/24 1610 75 14 125/76 98 08/24 1605 77 16 126/76 98 08/24 1600 85 17 125/73 100 Nasal 4.0 Cannula 08/24 1554 98.1 94 14 125/58 95 08/24 1420 98.4 75 16 127/78 96 Room Air I&O 08/24 0800 08/24 1600 08/25 0000 Intake Total 0 300 3146 Output Total 50 275 250 Balance -50 25 2896 General Appearance Alert, Oriented X3, Cooperative, No acute distress Abdomen Normal exam, Normal bowel sounds, Soft, wound drain has serous output Assessment and Plan Problem List 1. Strangulated ventral hernia Plan If pt. handle lunch OK will send home. Drain will be removed in the clinic.
--- NOTE | 2016-08-25 11:28 | Provider's Discharge Care Plan ---
Problem, Goal, Plan Problem List 1. Strangulated ventral hernia
--- NOTE | 2016-08-25 11:28 | Provider's Discharge Care Plan ---
Problem, Goal, Plan Problem List 1. Strangulated ventral hernia
== END 2016-08-25 14:35 | disposition home or self-care (01) ==
LOC: ED SRH 04:19 → ACUTE2 SRH 05:44 → TRANS SRH 05:44 → ACUTE2 SRH 06:29
PROVIDERS: Surgery; ADMIT Obstetrics & Gynecology
PROC: 0DBS0ZZ (ICD-10-PCS; principal; 2016-08-24 15:00)
PROC: 0WQF0ZZ Repair Abdominal Wall, Open Approach (ICD-10-PCS; principal; 2016-08-24 15:00)
DX: T81.32XA Disruption of internal operation (surgical) wound, not elsewhere classified, initial encounter (principal); K43.1 Incisional hernia with gangrene; E86.0 Dehydration; R11.2 Nausea with vomiting, unspecified; R74.8 Abnormal levels of other serum enzymes; Z98.84 Bariatric surgery status; Z90.710 Acquired absence of both cervix and uterus
CPT/HCPCS: 29229; 29230; 50002; 60001; 70002; 80102; 80124; 80212; 80812; 82710; 83526; 84041; 84532; 90004; 90100; 90616; 91320; 92235; 92530; 92610; 92720; 92760; 92761; 92762; 92763; 92764; 92765; 92766; 92767; 94060; 95059